=== PATIENT | male | born 1960 | race Caucasian/White ===

== ENCOUNTER 2017-09-22 09:48 | Outpatient (CLI) | payer BC ==
--- NOTE | 2017-09-22 14:32 | NM ---
WHOLE BODY BONE SCAN: Date: 09/22/17 INDICATION: Elevated PSA with history of prostate malignancy. RADIOPHARMACEUTICAL: 32 mCi of technetium labeled MDP, IV. COMPARISON: Prior exam dated 03/11/17. FINDINGS: There is progression of metastatic disease involving the thoracic spine and bilateral ribs. There is a new focal abnormality seen within the central sacrum and left sacral ala suspicious for metastatic disease. Area of activity involving the right upper cervical spine is likely stable, likely related t o degenerative changes. Degenerative changes are seen involving the AC joints, sternoclavicular joint s, both knees, and feet. IMPRESSION: Worsening osseous metastatic disease of the thoracic spine, ribs, and sacrum. POS: [facility]
== END 2017-09-22 09:49 | disposition home or self-care (01) ==
LOC: NM 09:48
PROVIDERS: ATTEND Internal Medicine Medical Oncology
DX: C61 Malignant neoplasm of prostate (principal); C79.51 Secondary malignant neoplasm of bone; R11.2 Nausea with vomiting, unspecified
CPT/HCPCS: 78306; A9503